=== PATIENT | male | born 1995 | race African-American/Black ===

== ENCOUNTER 2017-05-05 08:13 | Emergency (ER) | payer SELFPAY ==
[~2017-05-05] VITALS: Ht 177.8 cm; Wt 105.0 kg
[~2017-05-05 08:13] MED LIST: CIPR500T2 PO; CLIN150 PO; FLAG500T PO; HYDR-3129 PO; HYDR-3533 PO; LEVA500T33 PO; METR-1 PO; NORC10TA2 PO
[2017-05-05 08:14] VITALS: BP 144/70; PULSE 71; RESP 16; TEMP 99.2; O2SAT 97
[2017-05-05] MEDS ORDERED: SODIUM CHLORIDE 0.9% FLUSH 10 ML FLUSH IV FLUSH PRN (09:00)
--- NOTE | 2017-05-05 09:01 | PD ---
HPI Chief Complaint: Pain: Acute or Chronic Time Seen by Provider: 08:30 Travel History International Travel<30 days: No Contact w/Intl Traveler<30days: No Traveled to known affect area: No History of Present Illness HPI 22 yo male presenting with rectal pain and brown/bloody discharge that started about 4 days ago after a bowel movement. He says the discharge started after the BM and has been constantly draining since then. He has been applying over the counter hemorrhoid cream which has not been helping. This has never happened to him before. He denies abdominal pain, fevers, recent illness. He denies any urinary symptoms. He feels bloated because he has not been able to have a BM since then. He does not take any medications at home. History of an appendectomy with subsequent abdominal abscess drainage in 2016. Denies tobacco , alcohol or drug use. He admits to a history of anal sex but reports it has been a while since he has done it. Denies ever being tested for HIV. Denies history of gonorrhea, chlamydia. PFSH Past Medical History Medical History: Denies Significant Hx Cancer: No Cardiovascular Problems: No Diminished Hearing: No Endocrine: No Genitourinary: No Immune Disorder: No Musculoskeletal: No Neurologic: No Psychiatric: No Reproductive: No Respiratory: No Tetanus Vaccination: Unknown Influenza Vaccination: No Past Surgical History Abdominal Surgery: Yes AICD: No Appendectomy: Yes () Arteriovenous Shunt: No Cardiac Surgery: No Ear Surgery: No Endocrine Surgery: No Eye Surgery: No Genitourinary Surgery: No Gynecologic Surgery: No Insulin Pump: No Joint Replacement: No Oral Surgery: No Pacemaker: No Thoracic Surgery: No Social History Alcohol Use: Yes (SOCIALLY) Tobacco Use: Yes Substance Use: Yes (MARIJUANA ONCE IN A WHILE) Allergies-Medications (Allergen,Severity, Reaction): Coded Allergies: No Known Allergies (Unverified Adverse Reaction, Unknown, 05/05/17) Reported Meds & Prescriptions Reported Meds & Active Scripts Active Flagyl (Metronidazole) 500 Mg Tab 500 Mg PO BID 10 Days Review of Systems Except as stated in HPI: all other systems reviewed are Neg Physical Exam Narrative GENERAL: Well-developed well-nourished no obvious distress SKIN: Focused skin assessment warm/dry. HEAD: Atraumatic. Normocephalic. EYES: Pupils equal and round. No scleral icterus. No injection or drainage. ENT: No nasal bleeding or discharge. Mucous membranes pink and moist. NECK: Trachea midline. No JVD. CARDIOVASCULAR: Regular rate and rhythm. No murmur appreciated. RESPIRATORY: No accessory muscle use. Clear to auscultation. Breath sounds equal bilaterally. GASTROINTESTINAL: Abdomen soft, non-tender, nondistended. Hepatic and splenic margins not palpable. RECTAL exam: Minimal tenderness without any mass or hemorrhoid no fissure, no discharge immediately expressed but after the exam the patient was able to express about a half a tablespoon of purulent-white material. This discharge was collected on a specimen sent for GC and chlamydia MUSCULOSKELETAL: No obvious deformities. No clubbing. No cyanosis. No edema. NEUROLOGICAL: Awake and alert. No obvious cranial nerve deficits. Motor grossly within normal limits. Normal speech. PSYCHIATRIC: Appropriate mood and affect; insight and judgment normal. Data Data Last Documented VS Vital Signs Date Time Temp Pulse Resp B/P (MAP) Pulse Ox O2 Delivery O2 Flow Rate FiO2 05/05/17 13:35 05/05/17 13:34 80 16 98 Room Air 05/05/17 08:14 99.2 Orders Orders Complete Blood Count With Diff (05/05/17 08:58) Comprehensive Metabolic Panel (05/05/17 08:58) Iv Access Insert/Monitor (05/05/17 08:58) Ecg Monitoring (05/05/17 08:58) Oximetry (05/05/17 08:58) Sodium Chloride 0.9% Flush (Ns Flush) (05/05/17 09:00) Gc And Chlamydia Pcr (05/05/17 09:03) Ceftriaxone Inj (Rocephin Inj) (05/05/17 10:30) Azithromycin Inj (Zithromax Inj) (05/05/17 10:30) Ed Discharge Order (05/05/17 10:25) Labs Laboratory Tests Test 05/05/17 09:15 05/05/17 12:10 White Blood Count 6.3 TH/MM3 Red Blood Count 4.13 MIL/MM3 Hemoglobin 11.6 GM/DL Hematocrit 35.5 % Mean Corpuscular Volume 86.0 FL Mean Corpuscular Hemoglobin 28.1 PG Mean Corpuscular Hemoglobin Concent 32.7 % Red Cell Distribution Width 13.7 % Platelet Count 299 TH/MM3 Mean Platelet Volume 7.2 FL Neutrophils (%) (Auto) 48.4 % Lymphocytes (%) (Auto) 41.3 % Monocytes (%) (Auto) 8.4 % Eosinophils (%) (Auto) 1.3 % Basophils (%) (Auto) 0.6 % Neutrophils # (Auto) 3.0 TH/MM3 Lymphocytes # (Auto) 2.6 TH/MM3 Monocytes # (Auto) 0.5 TH/MM3 Eosinophils # (Auto) 0.1 TH/MM3 Basophils # (Auto) 0.0 TH/MM3 CBC Comment DIFF FINAL Differential Comment Blood Urea Nitrogen 10 MG/DL Creatinine 0.79 MG/DL Random Glucose 93 MG/DL Total Protein 7.7 GM/DL Albumin 3.3 GM/DL Calcium Level 8.9 MG/DL Alkaline Phosphatase 54 U/L Aspartate Amino Transf (AST/SGOT) 15 U/L Alanine Aminotransferase (ALT/SGPT) 15 U/L Total Bilirubin 0.7 MG/DL Sodium Level 139 MEQ/L Potassium Level 3.3 MEQ/L Chloride Level 104 MEQ/L Carbon Dioxide Level 29.4 MEQ/L Anion Gap 6 MEQ/L Estimat Glomerular Filtration Rate 146 ML/MIN Chlamydia trachomatis DNA (PCR) DETECTED Neisseria gonorrhoeae DNA (PCR) DETECTED MDM Medical Decision Making Medical Screen Exam Complete: Yes Emergency Medical Condition: Yes Differential Diagnosis STD, proctitis, rectal abscess seems unlikely Narrative Course Patient room to the emergency department, appears well, rectal exam is only minimal tenderness, labs are reassuring, he is a homosexual male and has receptive anal sex and high suspicion for STDs, discussed this with the patient and will treat empirically, will also add Flagyl for the next week, discussed need for follow-up with a primary care physician as well as the health department for testing for HIV hepatitis and syphilis. He verbalized understanding and agreement. Discussed maternity criteria he is stable for discharge Diagnosis Primary Impression: Proctitis Med/Other Pt SpecificInfo: Prescription(s) given Scripts Metronidazole (Flagyl) 500 Mg Tab 500 MG PO BID for Infection for 10 Days, #20 TAB 0 Refills Prov: Kevin Madrid MD 05/05/17 Disposition: 01 DISCHARGE HOME Condition: Stable Kevin Madrid MD May 05, 2017 09:01
[2017-05-05 09:27] LABS: BASOPHIL % 0.6 % (0.0-2.0); EOSINOPHIL # 0.1 TH/MM3 (0-0.4); EOSINOPHIL % 1.3 % (0.0-4.0); HEMATOCRIT 35.5 % (39.0-51.0); HEMOGLOBIN 11.6 GM/DL (13.0-17.0); LYMPH % 41.3 % (9.0-44.0); LYMPHOCYTE # 2.6 TH/MM3 (1.0-4.8); MEAN CORPUSCULAR HEMOGLOBIN 28.1 PG (27.0-34.0); MEAN CORPUSCULAR HGB CONC 32.7 % (32.0-36.0); MEAN PLATELET VOLUME 7.2 FL (7.0-11.0); MONO % 8.4 % (0.0-8.0); MONOCYTE # 0.5 TH/MM3 (0-0.9); NEUT % 48.4 % (16.0-70.0); PLATELET COUNT 299 TH/MM3 (150-450); RED BLOOD COUNT 4.13 MIL/MM3 (4.50-5.90); RED CELL DISTRIBUTION WIDTH 13.7 % (11.6-17.2); WHITE BLOOD COUNT 6.3 TH/MM3 (4.0-11.0)
[2017-05-05 09:39] VITALS: O2SAT 98
[2017-05-05 09:47] LABS: ALBUMIN 3.3 GM/DL (3.4-5.0); AST (GOT) 15 U/L (15-37); BICARBONATE 29.4 MEQ/L (21.0-32.0); BLOOD UREA NITROGEN 10 MG/DL (7-18); CALCIUM 8.9 MG/DL (8.5-10.1); CHLORIDE 104 MEQ/L (98-107); CREATININE 0.79 MG/DL (0.60-1.30); GLOMERULAR FILTRATION RATE 146 ML/MIN (>89); GLUCOSE,RANDOM 93 MG/DL (74-106); SODIUM (NA) 139 MEQ/L (136-145)
[2017-05-05 09:49] LABS: ALT (GPT) 15 U/L (12-78)
[2017-05-05 09:51] LABS: ALKALINE PHOSPHATASE 54 U/L (45-117); TOTAL BILIRUBIN ADULT 0.7 MG/DL (0.2-1.0); TOTAL PROTEIN 7.7 GM/DL (6.4-8.2)
[2017-05-05] MEDS ORDERED: METR-1 PO (10:25)
[2017-05-05] MEDS ORDERED: AZITHROMYCIN INJ 500 MG in SODIUM CHLOR 0.9% 250 ML INJ 250 ML IV ONE (10:30)
[2017-05-05] MEDS ORDERED: cefTRIAXone INJ 1,000 MG in SODIUM CHLORIDE 0.9% INJ 100 ML IV ONE (10:30)
[2017-05-05 12:17] VITALS: BP 140/98; PULSE 78; RESP 14; O2SAT 98
[2017-05-05 13:34] VITALS: BP 135/80; PULSE 80; RESP 16; O2SAT 98
== END 2017-05-05 13:35 | disposition home or self-care (01) ==
LOC: NEPC 08:13
DX: K62.89 Other specified diseases of anus and rectum (principal)
CPT/HCPCS: 80053; 85025; 87491; 87591; 96365; 96368; 99284; J0456; J0696; J7050

== ENCOUNTER 2017-08-01 12:33 | Emergency (ER) | payer SELFPAY ==
[~2017-08-01] VITALS: Ht 177.8 cm; Wt 104.5 kg
[~2017-08-01 12:33] MED LIST changes: -CIPR500T2 PO; -CLIN150 PO; -FLAG500T PO; -HYDR-3129 PO; -HYDR-3533 PO; -LEVA500T33 PO; -NORC10TA2 PO
[2017-08-01 12:35] VITALS: BP 140/81; PULSE 77; RESP 16; TEMP 98.6; O2SAT 100
[2017-08-01 12:49] VITALS: BP 139/82; PULSE 72; RESP 15; TEMP 98.1; O2SAT 99
--- NOTE | 2017-08-01 14:23 | PD ---
HPI Chief Complaint: GI Complaint Time Seen by Provider: 12:48 Travel History International Travel<30 days: No Contact w/Intl Traveler<30days: No Traveled to known affect area: No History of Present Illness HPI Patient is a 22-year-old male who returns to the emergency room with complaints of rectal pain. Patient reports that he has been noticing bright red blood in his stool, patient reports that he felt a bump in his rectum concerning for possible abscess. Patient reports that he had this in the past and was seen here in the emergency room and was placed on antibiotics, reports that the antibiotics cleared up the abscess. He did have cultures at that time as he did have pus from his rectum which was positive for chlamydia and gonorrhea. Patient denies any abdominal pain, denies fever/chills. Patient with no other complaints. PFSH Past Medical History Cancer: No Cardiovascular Problems: No Diminished Hearing: No Endocrine: No Genitourinary: No Immune Disorder: Yes (hiv) Musculoskeletal: No Neurologic: No Psychiatric: No Reproductive: No Respiratory: No Tetanus Vaccination: > 5 Years Influenza Vaccination: Yes Past Surgical History Abdominal Surgery: Yes AICD: No Appendectomy: Yes () Arteriovenous Shunt: No Cardiac Surgery: No Ear Surgery: No Endocrine Surgery: No Eye Surgery: No Genitourinary Surgery: No Gynecologic Surgery: No Insulin Pump: No Joint Replacement: No Oral Surgery: No Pacemaker: No Thoracic Surgery: No Other Surgery: Yes (APPENDECTOMY 03/12) Social History Alcohol Use: Yes (SOCIALLY) Tobacco Use: No Substance Use: Yes (MARIJUANA ONCE IN A WHILE) Allergies-Medications (Allergen,Severity, Reaction): Coded Allergies: No Known Allergies (Verified Adverse Reaction, Unknown, 08/01/17) Reported Meds & Prescriptions Reported Meds & Active Scripts Active Doxycycline Hyclate 100 Mg Cap 100 Mg PO BID Review of Systems General / Constitutional: No: Fever Eyes: No: Visual changes HENT: No: Headaches Cardiovascular: No: Chest Pain or Discomfort Respiratory: No: Shortness of Breath Gastrointestinal: No: Abdominal Pain Genitourinary: No: Dysuria Musculoskeletal: No: Pain Skin: Positive Other (abscess to rectum), No Rash Neurologic: No: Weakness Psychiatric: No: Depression Endocrine: No: Polydipsia Hematologic/Lymphatic: No: Easy Bruising Physical Exam Narrative GENERAL: NAD SKIN: Focused skin assessment warm/dry. HEAD: Atraumatic. Normocephalic. EYES: Pupils equal and round. No scleral icterus. No injection or drainage. ENT: No nasal bleeding or discharge. Mucous membranes pink and moist. NECK: Trachea midline. No JVD. CARDIOVASCULAR: Regular rate and rhythm. No murmur appreciated. RESPIRATORY: No accessory muscle use. Clear to auscultation. Breath sounds equal bilaterally. GASTROINTESTINAL: Abdomen soft, non-tender, nondistended. Hepatic and splenic margins not palpable. Rectal exam performed with RN at bedside, patient with external hemorrhoid, no discharge MUSCULOSKELETAL: No obvious deformities. No clubbing. No cyanosis. No edema. NEUROLOGICAL: Awake and alert. No obvious cranial nerve deficits. Motor grossly within normal limits. Normal speech. PSYCHIATRIC: Appropriate mood and affect; insight and judgment normal. Data Data Last Documented VS Vital Signs Date Time Temp Pulse Resp B/P (MAP) Pulse Ox O2 Delivery O2 Flow Rate FiO2 08/01/17 12:49 15 08/01/17 12:49 98.1 72 139/82 (101) 99 Room Air Orders Orders Azithromycin Powd Pack (Zithromax Powd P (08/01/17 14:30) Lidocaine 1% Inj (50 Ml) (Xylocaine 1% I (08/01/17 14:30) Ceftriaxone Inj (Rocephin Inj) (08/01/17 14:30) MDM Medical Decision Making Medical Screen Exam Complete: Yes Emergency Medical Condition: Yes Medical Record Reviewed: Yes Interpretation(s) Vital Signs Date Time Temp Pulse Resp B/P (MAP) Pulse Ox O2 Delivery O2 Flow Rate FiO2 08/01/17 12:49 15 08/01/17 12:49 98.1 72 15 139/82 (101) 99 Room Air 08/01/17 12:35 98.6 77 16 140/81 (100) 100 Differential Diagnosis Abscess, proctitis Narrative Course 22-year-old male with complaints of rectal pain as well as bright red blood in stool. Bright red stools could be secondary from his external hemorrhoid seen on exam. Patient was seen on May 05, 2017 and did have similar complaints. At that time, white pus was expressed from his rectum which was positive for chlamydia as well as this gonorrhea. Patient will be treated for empirically both gonorrhea and chlamydia, will place on doxy bid as outpatient. He understands need to follow-up with health department for workup of further STDs. Signs and symptoms of when to return to the emergency room was reviewed patient. Diagnosis Primary Impression: Proctitis Patient Instructions: General Instructions Additional Instructions: Please provide patient with a copy of their lab work and studies at discharge* * Please follow up with your primary care doctor in 2-3 days Return to the ER if symptoms worsen or progress Return to the ER as needed Please follow-up with the health department for full STD panel Med/Other Pt SpecificInfo: Prescription(s) given Scripts Doxycycline Hyclate (Doxycycline Hyclate) 100 Mg Cap 100 MG PO BID for Infection, #28 CAP 0 Refills Prov: Donna Del Rio DO 08/01/17 Disposition: 01 DISCHARGE HOME Condition: Stable Donna Del Rio DO August 01, 2017 14:23
[2017-08-01] MEDS ORDERED: DOXY100C PO (14:27)
[2017-08-01] MEDS ORDERED: AZITHROMYCIN PWD FOR SUSP 1 GM PACKET PO ONE (14:30)
[2017-08-01] MEDS ORDERED: LIDOCAINE HCL 1% 50 ML VIAL IM ONE (14:30)
== END 2017-08-01 15:35 | disposition home or self-care (01) ==
LOC: NEPC 12:33
DX: K62.89 Other specified diseases of anus and rectum (principal)
CPT/HCPCS: 96372; 99283; J0696

== ENCOUNTER 2017-09-01 23:04 | Emergency (ER) | payer SELFPAY ==
[~2017-09-01 23:04] MED LIST changes: +DOXY100C PO; -METR-1 PO
[2017-09-01 23:07] VITALS: BP 146/76; PULSE 75; RESP 16; TEMP 98.8; O2SAT 98
[2017-09-02] MEDS ORDERED: CEPH-460 PO (00:12)
[2017-09-02] MEDS ORDERED: BACT800T5 PO (00:12)
--- NOTE | 2017-09-02 00:30 | PD ---
HPI Chief Complaint: Bite or Sting Time Seen by Provider: 00:05 Travel History International Travel<30 days: No Contact w/Intl Traveler<30days: No Traveled to known affect area: No History of Present Illness HPI 22-year-old male presents for evaluation of possible bug bites. Symptom onset 2 days ago. He reports that he spent the night at a friend's house and woke up the next day with scattered pruritic papular lesions. He reports that one lesion in particular is now painful and more swollen than the others on his right leg. Symptoms are mild, aggravated by sleeping at a friend's house, unrelieved with [id number] topical steroid cream. He has no other complaints at this time. PFSH Past Medical History Cancer: No Cardiovascular Problems: No Diminished Hearing: No Endocrine: No Genitourinary: No Immune Disorder: Yes (hiv) Musculoskeletal: No Neurologic: No Psychiatric: No Reproductive: No Respiratory: No Past Surgical History Abdominal Surgery: Yes AICD: No Appendectomy: Yes () Arteriovenous Shunt: No Cardiac Surgery: No Ear Surgery: No Endocrine Surgery: No Eye Surgery: No Genitourinary Surgery: No Gynecologic Surgery: No Insulin Pump: No Joint Replacement: No Oral Surgery: No Pacemaker: No Thoracic Surgery: No Other Surgery: Yes (APPENDECTOMY 03/12) Social History Alcohol Use: Yes (SOCIALLY) Tobacco Use: No Substance Use: Yes (MARIJUANA ONCE IN A WHILE) Allergies-Medications (Allergen,Severity, Reaction): Coded Allergies: No Known Allergies (Verified Adverse Reaction, Unknown, 09/01/17) Reported Meds & Prescriptions Reported Meds & Active Scripts Active Keflex (Cephalexin) 500 Mg Cap 500 Mg PO Q8H Bactrim DS (Sulfamethoxazole-Trimethoprim) 800-160 Mg Tab 1 Tab PO BID Doxycycline Hyclate 100 Mg Cap 100 Mg PO BID Review of Systems Except as stated in HPI: all other systems reviewed are Neg Physical Exam Narrative GENERAL: Well-developed well-nourished male no acute distress SKIN: Warm and dry. The patient has a few small scattered papular lesions on the extremities. There is 1 area of erythema and induration on the posterior right thigh which is approximately 3 cm across. No fluctuance or drainage. HEAD: Atraumatic. Normocephalic. EYES: Pupils equal and round. No scleral icterus. No injection or drainage. ENT: No nasal bleeding or discharge. Mucous membranes pink and moist. NECK: Trachea midline. No JVD. CARDIOVASCULAR: Regular rate and rhythm. No murmur appreciated. RESPIRATORY: No accessory muscle use. Clear to auscultation. Breath sounds equal bilaterally. MUSCULOSKELETAL: No obvious deformities. No clubbing. No cyanosis. No edema. NEUROLOGICAL: Awake and alert. No obvious cranial nerve deficits. Motor grossly within normal limits. Normal speech. Data Data Last Documented VS Vital Signs Date Time Temp Pulse Resp B/P (MAP) Pulse Ox O2 Delivery O2 Flow Rate FiO2 09/01/17 23:07 98.8 75 16 146/76 (99) 98 MDM Medical Decision Making Medical Screen Exam Complete: Yes Emergency Medical Condition: Yes Medical Record Reviewed: Yes Differential Diagnosis Fleabites, bedbugs, bug bites, viral exanthem, scabies Narrative Course Patient has several scattered papular lesions on the extremities which are most likely secondary to fleas although bedbugs are a consideration. Recommended that the patient have his friend check his house for bugs through an developmental electronics assembler. He does have an area of cellulitis of the right thigh which will be treated with Bactrim and Keflex. Diagnosis Primary Impression: Bug bites Additional Impression: Cellulitis Additional Instructions: Medication as prescribed. Take [id number] Benadryl as needed for itching. Do not drive or drink alcohol and taking Benadryl. Avoid scratching. Return for any emergent medical conditions. Med/Other Pt SpecificInfo: Prescription(s) given Scripts Cephalexin (Keflex) 500 Mg Cap 500 MG PO Q8H for Infection, #30 CAP 0 Refills Prov: Donna Del Rio DO 09/02/17 Sulfamethoxazole-Trimethoprim (Bactrim DS) 800-160 Mg Tab 1 TAB PO BID for Infection, #20 TAB 0 Refills Prov: Donna Del Rio DO 09/02/17 Disposition: DISCHARGE HOME Condition: Stable Manpreet Betts Sep 02, 2017 00:30
== END 2017-09-02 00:49 | disposition home or self-care (01) ==
LOC: NEPD 23:04
DX: T14.8XXA Other injury of unspecified body region, initial encounter (principal); L03.115 Cellulitis of right lower limb; F12.90 Cannabis use, unspecified, uncomplicated; W57.XXXA Bitten or stung by nonvenomous insect and other nonvenomous arthropods, initial encounter
CPT/HCPCS: 99283